=== PATIENT | female | born 1960 | race Caucasian/White ===

== ENCOUNTER → 2020-07-09 | Outpatient (CLI) | payer BC ==
--- NOTE | 2020-07-10 10:38 | MM ---
Reason for exam: screening (asymptomatic). Last mammogram was performed 6 years ago. History: Patient is postmenopausal. Family history of breast cancer in mother at age 45. Physical Findings: A clinical breast exam by your physician is recommended on an annual basis and results should be correlated with mammographic findings. MG 3D Screening Mammo W/Cad Bilateral CC and MLO view(s) were taken. Prior study comparison: June 27, 2014, bilateral MG screening mammo w CAD. There are scattered fibroglandular densities. Finding: There is a 5 mm circumscribed oval mass located 7 cm from the nipple in the upper outer quadrant, middle position of the right breast CC 25/82 and MLO 27/89. There is a chronic nodularity in the right breast. Focal asymmetry middle depth upper outer quadrant left breast. New finding since June 27, 2014. ASSESSMENT: Incomplete: need additional imaging evaluation, BI-RAD 0 RECOMMENDATION: Ultrasound of both breasts. [facility] will attempt to contact patient to return for ultrasound.
== END | disposition home or self-care (01) ==
LOC: RADMAMWWP 09:56
PROVIDERS: ATTEND Family Medicine
DX: Z12.31 Encounter for screening mammogram for malignant neoplasm of breast (principal); Z80.3 Family history of malignant neoplasm of breast
CPT/HCPCS: 77063; 77067

== ENCOUNTER → 2020-07-12 | Outpatient (CLI) | payer BC ==
--- NOTE | 2020-07-12 11:11 | USB ---
Reason for exam: additional evaluation requested from abnormal screening. History: Patient is postmenopausal. Family history of breast cancer in mother at age 45. Physical Findings: Nurse did not find any significant physical abnormalities on exam. US Breast Workup Limited POLI Right limited breast ultrasound including focal area of concern, retroareolar and axilla demonstrates a 4 x 2 x 4mm oval, cystic lesion at 10 o'clock and a 3mm oval lymph node at 11 o'clock. Left limited breast ultrasound including focal area of concern, retroareolar and axilla demonstrates lymph nodes at the axilla 7mm in size. These results were verbally communicated with the patient and result sheet given to the patient on 07/12/20. ASSESSMENT: Benign, BI-RAD 2 RECOMMENDATION: Follow-up diagnostic mammogram of both breasts in 6 months.
== END | disposition home or self-care (01) ==
LOC: RADUSWWP 10:03
PROVIDERS: ATTEND Family Medicine
DX: R92.8 Other abnormal and inconclusive findings on diagnostic imaging of breast (principal)

== ENCOUNTER 2024-03-05 18:04 | Emergency (ER) | payer MEDICARE ==
[2024-03-05] MEDS ORDERED: KETOROLAC 15 MG/ML 1 ML VIAL ONE ×2 (20:43→23:42)
[2024-03-05] MEDS ORDERED: SODIUM CHLORIDE 0.9% 1,000 ML BAG ONE (20:45)
[2024-03-06] MEDS ORDERED: KETOROLAC 15 MG/ML 1 ML VIAL ONE (03:24)
[2024-03-06] MEDS ORDERED: cefTRIAXone IN SWFI 1,000 MG/10 ML SYRINGE IVP ONE (04:36)
== END 2024-03-06 04:45 | disposition home or self-care (01) ==
LOC: EC 18:04
CPT/HCPCS: 96361; 96374; 96375; 96376; 99283